=== PATIENT | female | born 1995 | race Two or more races ===

== ENCOUNTER 2019-09-18 13:21 | Emergency (ER) | payer OTHER ==
[~2019-09-18] VITALS: Ht 160 cm; Wt 61.3 kg
--- NOTE | 2019-09-18 17:29 | REP ---
Ankle series: Four views. History: Injury in a fall. Findings: Four views right ankle demonstrate intact ankle mortise. No fracture or subluxation is seen. Soft tissues are unremarkable. Impression: Negative right ankle. No fracture seen. Electronically Signed by Xavier Ray MD 09/18/2019 05:20 P
[2019-09-18] MEDS ORDERED: ACETAMINOPHEN 325 MG TAB As Ordered ONE (17:55)
[2019-09-18] MEDS ORDERED: ACETAMINOPHEN 325 MG TAB PO ONE (18:00)
[2019-09-18] MEDS ORDERED: IBUP-1022 PO (18:10)
[2019-09-18] MEDS ORDERED: METH1TAB40 PO (18:10)
[2019-09-18 18:26] VITALS: BP 128/84
--- NOTE | 2019-09-18 23:36 | REP ---
CT BRAIN WITHOUT CONTRAST: REASON: Trauma. PRIORS: None. TECHNIQUE: 4.5 mm contiguous transaxial sections were obtained from the skull base to the cerebral convexities with thin cuts through the posterior fossa without the administration of intravenous contrast. FINDINGS: The ventricles and sulci are consistent with the patient's age. There are no extra-axial fluid collections. There is no mass effect. The deep cerebral white matter is consistent with the patient's age. The orbital and petrous structures, cerebellopontine angles, and posterior fossa are unremarkable. The sella turcica, cavernous, and paracavernous structures are essentially unremarkable. The visualized portions of the paranasal sinuses and mastoid air cells are clear. Images of the skull base show no gross abnormality. IMPRESSION: Essentially unremarkable CT examination of the brain. Electronically Signed by Sebastian Chaney DO 09/19/2019 09:43 A
--- NOTE | 2019-09-18 23:38 | REP ---
REASON: Pain in the neck. PRIORS: None. Vertebral body height and alignment is within normal limits. The disc spaces are symmetric and well maintained. The facet joints are well aligned bilaterally. There is no fracture. There is no abnormal paraspinal soft tissue swelling. IMPRESSION: Normal exam. Electronically Signed by Sebastian Chaney DO 09/19/2019 09:43 A
--- NOTE | 2019-09-18 23:39 | REP ---
REASON: Back pain after trauma. PRIORS: None. Vertebral body height and alignment is within normal limits. The disc spaces are symmetric and well maintained. There is no acute fracture or destructive osseous lesion. CT cannot rule out discopathy. IMPRESSION: Normal exam with findings and limitations as described above. Electronically Signed by Sebastian Chaney DO 09/19/2019 09:44 A
--- NOTE | 2019-09-19 00:03 | REP ---
CHEST, SINGLE VIEW: There is no evidence of acute infiltrate. No pleural effusion is seen. The heart is normal in size. The mediastinal silhouette is unremarkable. The visualized osseous structures are intact. IMPRESSION: No acute pulmonary disease. Electronically Signed by Alvarado Rhodes MD 09/19/2019 09:21 A
--- NOTE | 2019-09-19 00:43 | REP ---
CT LUMBAR SPINE WITHOUT CONTRAST: HISTORY: Injury in a fall. CT FINDINGS: Lumbar vertebral body heights are preserved. Alignment is normal. There is no evidence of fracture or collapse. Disc spaces are maintained. No transverse process or spinous process fracture is appreciated. No sacral fracture is seen. No epidural or paraspinal hematoma is appreciated. IMPRESSION: Negative CT study of the lumbar spine. No fracture or collapse seen. Electronically Signed by Xavier Ray MD 09/19/2019 08:19 A
== END 2019-09-18 18:28 | disposition home or self-care (01) ==
LOC: M ED 13:21
DX: S16.1XXA Strain of muscle, fascia and tendon at neck level, initial encounter (principal); S93.401A Sprain of unspecified ligament of right ankle, initial encounter; S20.219A Contusion of unspecified front wall of thorax, initial encounter; S20.229A Contusion of unspecified back wall of thorax, initial encounter; W10.8XXA Fall (on) (from) other stairs and steps, initial encounter; Y92.018 Other place in single-family (private) house as the place of occurrence of the external cause; Z88.5 Allergy status to narcotic agent

== ENCOUNTER 2019-10-27 15:06 | Emergency (ER) | payer OTHER ==
[~2019-10-27] VITALS: Ht 160 cm; Wt 60.3 kg
[~2019-10-27 15:06] MED LIST: IBUP-1022 PO; METH1TAB40 PO
[2019-10-27 15:07] VITALS: BP 125/78
[2019-10-27] MEDS ORDERED: CETI10CA2 PO (15:56)
[2019-10-27] MEDS ORDERED: AZEL0.05 OP (15:56)
[2019-10-27] MEDS ORDERED: FLON1SPR NARES (15:56)
== END 2019-10-27 16:09 | disposition home or self-care (01) ==
LOC: M ED 15:06
DX: H10.45 Other chronic allergic conjunctivitis (principal); Z88.5 Allergy status to narcotic agent